=== PATIENT | male | born 1950 | race Caucasian/White ===

== ENCOUNTER 2025-05-16 10:44 | Inpatient (IN) | payer OTHER, SELFPAY ==
[2025-05-16] VITALS (12 sets, daily range): BP systolic 91–155; BP diastolic 63–101; PULSE 62–88; RESP 12–18; TEMP 36.4–36.7; O2SAT 92–98; BMI 25.7; BMI 25.0
--- NOTE | 2025-05-16 11:17 | CRLHL7_ITS ---
For Patients: As a result of the Century Cures Act, medical imaging exams and procedure reports are released immediately into your electronic medical record. You may view this report before your referring provider. If you have questions, please contact your health care provider. INDICATION: Fall. COMPARISON: None. TECHNIQUE: CT of the brain / head without intravenous contrast. Multiplanar axial, coronal, and sagittal reformats were reconstructed. FINDINGS: No intracranial hemorrhage. Moderate size area of underdevelopment or encephalomalacia in the left parietal lobe. Mild age-related atrophy as well. Scattered white matter hypodensities may be related to chronic microvascular ischemia. No mass or mass effect. Normal ventricles. No skull fractures. No worrisome focal bone lesion. IMPRESSION: No acute appearing findings or intracranial hemorrhage. Please note that all CT scans at this facility use dose modulation, iterative reconstruction, and/or weight-based dosing when appropriate to reduce radiation dose to as low as reasonably achievable. Dictated by Mary Kaur MD @ 05/16/2025 11:54:12 AM (Electronically Signed)
--- NOTE | 2025-05-16 11:17 | CRLHL7_ITS ---
For Patients: As a result of the 21st Century Cures Act, medical imaging exams and procedure reports are released immediately into your electronic medical record. You may view this report before your referring provider. If you have questions, please contact your health care provider. Indication: fall Technique: CT of the chest, abdomen, and pelvis was obtained without intravenous contrast. Please note that all CT scans at this facility use dose modulation, iterative reconstruction, and/or weight-based dosing when appropriate to reduce radiation dose to as low as reasonably achievable. Comparison: None. Findings: CHEST: Medical devices: None. Thyroid: Normal. Lymph nodes: Limited evaluation without IV contrast. No supraclavicular, axillary, mediastinal, or hilar lymphadenopathy. Vasculature: Limited evaluation without IV contrast. Aorta and main pulmonary artery diameters are within normal range. Mild aortic calcification. Heart: Moderate coronary artery calcification. No pericardial effusion. Other mediastinal structures: Normal noncontrast appearance. Lung parenchyma and pleura: Moderate scattered centrilobular nodularity and ground-glass in the left lower lobe. Mild paraseptal emphysema. Scattered calcified granulomata. Airways: Moderate bronchial wall thickening. Chest wall: Mildly displaced segmental right posterior 7th and 8th rib fractures. Minimally angulated right posteromedial 9th rib fracture. Mildly displaced segmental right posterior 10th and 11th rib fractures. Mild chronic healed left-sided rib fractures. ABDOMEN/PELVIS: Liver and biliary tree: Normal noncontrast appearance. Gallbladder: Cholelithiasis. Spleen: Normal noncontrast appearance. Pancreas: Mild to moderate fatty atrophy. Adrenal glands: Normal noncontrast appearance. Kidneys and ureters: No hydronephrosis or obstructing renal calculi. Gastrointestinal tract: Small to moderate stool burden. No evidence of acute appendicitis. No evidence of bowel obstruction. Peritoneal cavity: Normal Bladder: Normal Pelvic organs: Moderately enlarged prostate. Vasculature: Moderate calcification. Lymph nodes: Normal Abdominal wall: Trace fat containing periumbilical hernia. Musculoskeletal: Moderate degenerative changes of the visualized spine and bilateral hips. [id number] leftward curvature of the lumbar spine. Subcentimeter sclerotic lesion in the right iliac bone may represent a bone island in the absence of known malignancy. Impression: 1. Mildly displaced segmental right posterior 7th and 8th rib fractures. Minimally angulated right posteromedial 9th rib fracture. Mildly displaced segmental right posterior 10th and 11th rib fractures. While this may increase the risk of flail chest, this is felt to be less likely given the mildly displaced nature of several of these fractures. Consider correlation with respiratory status. 2. Moderate bronchial wall thickening may represent airways infection or inflammation. Moderate scattered centrilobular nodularity and ground-glass in the left lower lobes compatible with aspiration or atypical infection or inflammation. 3. No acute intra abdominal injury is seen. Please note that all CT scans at this facility use dose modulation, iterative reconstruction, and/or weight-based dosing when appropriate to reduce radiation dose to as low as reasonably achievable. Dictated by Gal Mclaughlin MD @ 05/16/2025 12:18:53 PM (Electronically Signed)
--- NOTE | 2025-05-16 11:17 | CRLHL7_ITS ---
For Patients: As a result of the Century Cures Act, medical imaging exams and procedure reports are released immediately into your electronic medical record. You may view this report before your referring provider. If you have questions, please contact your health care provider. INDICATION: Fall. COMPARISON: Same-day head CT TECHNIQUE: CT of the cervical spine without contrast. Multiplanar axial, coronal, and sagittal reformats were reconstructed. FINDINGS: No fracture. There is 2 millimeters retrolisthesis of C3 on C4. There is 2 millimeters anterolisthesis of C4 on C5. Severe C3-4 and C6-7 disc degenerative change. Moderate changes at other levels. Multilevel disc bulge and endplate osteophytes. Moderate multilevel facet arthritis. Multilevel bilateral neural foraminal narrowing. There is some central canal narrowing at C3-4 due to disc bulge, osteophytes, and thickening of the ligamentum flavum. No destructive bony lesions. No cervical prevertebral soft tissue swelling. Heavy atherosclerosis. Right apical worsened left apical centrilobular emphysema. There is a 4 millimeter nodule in the right lung apex. Consider follow-up chest CT in 1 year. IMPRESSION: No acute or traumatic findings on cervical spine CT. Please note that all CT scans at this facility use dose modulation, iterative reconstruction, and/or weight-based dosing when appropriate to reduce radiation dose to as low as reasonably achievable. Dictated by Mary Kaur MD @ 05/16/2025 11:58:53 AM (Electronically Signed)
--- NOTE | 2025-05-16 11:19 | ED.GENADULT ---
HPI - General Adult General Chief complaint: Rib Pain Stated complaint: Fall one week ago, r side pain Time Seen by Provider: 05/16/25 11:05 History of Present Illness HPI narrative: Patient is a 75-year-old gentleman who came home from the bar week ago presumably intoxicated and fell getting out of the car. Patient fell on his anterior chest and is not certain whether his head. Patient got up in promptly fell again on a piece of wood. Patient states he has most of his pain in anterior and lateral right side of his chest. Patient was unable to get up and actually drug himself across the frozen [employer] [place] y[place] into the house. Patient has been having red discharged from his scrotum since that time. He states he is urinating normally. Patient id decline medical care his insisted on bringing him in today week later as the pain and scrotal discharge have persisted. He has had no other neurologic symptoms. He states he has no alcohol since the accident. Patient is not eating or drinking much other than power rate and toast. Patient takes no anticoagulants or any other prescription medication. Related Data Home Medications ?Medication ?Instructions ?Recorded ?Confirmed No Known Home Medications 05/16/25 05/16/25 Allergies Allergy/AdvReac Type Severity Reaction Status Date / Time Penicillins Allergy Unknown Verified 05/16/25 11:01 Review of Systems Status of ROS: Reports: 10 or more systems reviewed and unremarkable except as noted in History and below Exam Narrative: Exam Narrative: EXAM GENERAL: Patient appears disheveled with poor dentition. EYES: No scleral icterus. LYMPH: No supraclavicular or cervical lymphadenopathy. SKIN: Bruise noted over the right posterior thorax. Scrotal exam shows no testicular or penis abnormalities but a he does have what appears to be a braided frostbitten and scrotal tissue. EXT: No dependent lower extremity pedal edema. HEART: Regular rate and rhythm with no murmurs, rubs, or gallops. LUNGS: Clear to auscultation bilaterally with no crackles or wheezes. ABD: Soft, non tender, non distended. PSYCH: Good eye contact, speech is not pressured. Neurologic cranial nerves 2-12 grossly intact no focal defects. Const: Vital Signs, click to edit/add: Vital Signs - 24 hr 05/16/25 10:48 Temperature 97.5 F L Pulse Rate [Pulse Oximeter] 75 Respiratory Rate 18 Blood Pressure [Le ft Upper Arm] 152/81 H Pulse Oximetry 98 Oxygen Delivery Me thod Room Air Course Course ED Course: Patient is a chronic alcohol drinker who had a fall that was unwitnessed. He will have CT head neck CT chest abdomen pelvis and I did send off CPK CBC comprehensive metabolic panel UA. Vital Signs Vital signs: Initial Vital Signs Temperature 97.5 F L 05/16/25 10:48 Temperature Source Temporal Artery Scan 05/16/25 10:48 Pulse Rate 75 05/16/25 10:48 Respiratory Rate 18 05/16/25 10:48 Blood Pressure 152/81 H 05/16/25 10:48 Blood Pressure Mean 104 05/16/25 10:48 Blood Pressure Position Sitting 05/16/25 10:48 Pulse Oximetry 98 05/16/25 10:48 Oxygen Delivery Method Room Air 05/16/25 10:48 Vital Signs Temperature 97.5 F L 05/16/25 10:48 Pulse Rate 75 05/16/25 10:48 Respiratory Rate 18 05/16/25 10:48 Blood Pressure 152/81 H 05/16/25 10:48 Pulse Oximetry 98 05/16/25 10:48 Oxygen Delivery Method Room Air 05/16/25 10:48 Temperature 97.5 F L 05/16/25 10:48 Pulse Rate 75 05/16/25 10:48 Respiratory Rate 18 05/16/25 10:48 Blood Pressure 152/81 H 05/16/25 10:48 Pulse Oximetry 98 05/16/25 10:48 Oxygen Delivery Method Room Air 05/16/25 10:48 Medical Decision Making [facility] Narrative Medical decision making narrative: Patient is a 75-year-old gentleman who got home at 1:00 a.m. 1 week ago after the [place] opening of the [employer] in [place]. Patient was presumably intoxicated and fell and then proceeded to drag himself across the frozen snow [facility] for the next 2 hours. Patient has fractures of ribs 7 through 11 with an underlying pneumonia. He also has dermatitis of his scrotum from likely frostbite with abrasion some bruising also noted in the groin bilaterally. Patient has not seen a doctor for many years. His CPK is normal his creatinine is 2.2 and I do not have a baseline. I did update his tetanus shot. I also discussed the case with him [facility] General surgery and hospitalist locally and the patient will be admitted after receiving IV Zosyn for treatment of rib fractures scrotal dermatitis and pneumonia. Lab Data Labs: Lab Results 05/16/25 Range/Units 11:47 WBC 10.85 (4.50-11.00) K/uL RBC 4.82 (4.30-5.90) m/uL Hgb 14.7 (13.5-17.5) gm/dL Hct 45.5 (37.0-53.0) % MCV 94 (80-100) fL MCH 31 (26-34) pg MCHC 32 (32-36) gm/dL RDW Coeff of Estefanía 14.5 (11.5-15.5) % Plt Count 215 (140-440) K/uL Neut % (Auto) 78.6 H (42.0-72.0) % Lymph % (Auto) 12.0 L (20-44) % [place] % (Auto) 8.4 (0.0-11.0) % Eos % (Auto) 0.6 (0.0-7.0) % Baso % (Auto) 0.3 (0.0-3.0) % Neut # (Auto) 8.50 H (1.7-7.0) K/uL Lymph # (Auto) 1.30 (0.90-2.90) K/uL [place] # (Auto) 0.90 (0.00-0.90) K/UL Eos # (Auto) 0.06 (0.00-0.50) K/uL Baso # (Auto) 0.03 (0.00-0.30) K/uL Abs Immat Gran (auto) 0.01 (0.00-0.30) K/uL Imm/Tot Granulo (auto) 0.1 % INR 0.87 L (0.91-1.10) Sodium 140 (135-149) mmol/L Potassium 5.0 (3.6-5.1) mmol/L Chloride 106 (96-114) mmol/L Carbon Dioxide 14 L (20-32) mmol/L Anion Gap 20 H (7-15) mEq/L BUN 46 H (7-30) mg/dL Creatinine 2.2 H (0.5-1.5) mg/dL Estimated Creat Clear 26.58 Estimated GFR 31 ml/min Glucose 107 (60-115) mg/dL Calcium 9.3 (8.4-10.6) mg/dL Total Bilirubin 1.0 (0.1-1.5) mg/dL AST 23 (12-35) U/L ALT 95 H (4-50) U/L Alkaline Phosphatase 67 (40-150) U/L Total Creatine Kinase 41 L (54-186) U/L Total Protein 7.7 (6.0-8.3) g/dL Albumin 4.4 (3.3-5.0) g/dL Discharge Plan Discharge Clinical Impression: Rib fracture Patient Disposition: Admitted As Inpatient Condition: Stable Activity Level: Other Discharge Diet: Other
[2025-05-16 12:01] LABS: Hematocrit* 45.5 % (37.0-53.0); Hemoglobin* 14.7 gm/dL (13.5-17.5); Immature Granulocytes Abs Auto 0.01 K/uL (0.00-0.30); Immature Granulocytes Pct Auto 0.1 %; Lymphocytes Absolute Auto 1.30 K/uL (0.90-2.90); Mean Corpuscular HGB Conc 32 gm/dL (32-36); Mean Corpuscular Hemoglobin 31 pg (26-34); Mean Corpuscular Volume 94 fL (80-100); RDW Coefficient of Variation % 14.5 % (11.5-15.5); Red Blood Count* 4.82 m/uL (4.30-5.90); White Blood Count* 10.85 K/uL (4.50-11.00)
[2025-05-16 12:03] LABS: Slide Review Reflex No
[2025-05-16 12:14] LABS: Albumin* 4.4 g/dL (3.3-5.0); Chloride* 106 mmol/L (96-114); Sodium* 140 mmol/L (135-149)
[2025-05-16 12:15] LABS: INR 0.87 (0.91-1.10); Potassium* 5.0 mmol/L (3.6-5.1); Prothrombin Time 12.6 Seconds
[2025-05-16 12:17] LABS: Alanine Aminotransferase* 95 U/L (4-50); Alkaline Phosphatase* 67 U/L (40-150); Anion Gap 20 mEq/L (7-15); Aspartate Amino Transferase* 23 U/L (12-35); Bilirubin Total* 1.0 mg/dL (0.1-1.5); Blood Urea Nitrogen* 46 mg/dL (7-30); Carbon Dioxide* 14 mmol/L (20-32); Creatinine* 2.2 mg/dL (0.5-1.5); Est. Creatinine Clearance* 26.58; Estimated Glomerular Filt Rate 31 ml/min
[2025-05-16 12:18] LABS: Calcium* 9.3 mg/dL (8.4-10.6); Creatine Kinase* 41 U/L (54-186); Glucose* 107 mg/dL (60-115); Total Protein* 7.7 g/dL (6.0-8.3)
[2025-05-16 13:03] LABS: Appearance Urine Clear (Clear)
[2025-05-16] MEDS: PIPERACILLIN/TAZOBACTAM 2.25 GM in 0.9 % SODIUM CHLORIDE Mini-bag 100 ML IVPB (13:11)
[2025-05-16] MEDS: AZITHROMYCIN 250 MG TABLET 500 MG PO (13:11)
[2025-05-16] MEDS: TETANUS/DIPHTH/PERTUSSIS 0.5 ML SYRINGE IM (13:12)
--- NOTE | 2025-05-16 14:03 | PC.NURSE ---
Scrotum pictures as requested by provider
[2025-05-16] MEDS: ACETAMINOPHEN 325 MG TABLET 975 MG PO ×2 (14:15→23:35)
[2025-05-16] MEDS: THIAMINE 100 MG TABLET PO (15:15)
--- NOTE | 2025-05-16 15:54 | PM.IMHP1 ---
Assessment and Plan Assessment and plan (1) DOMINIK (acute kidney injury): Problem comment: Unknown baseline On admission; creatinine elevated at 2.2 with GFR of 31 Creatinine kinase was within normal after the fall Likely secondary to dehydration as patient has decreased appetite and is not drinking well or it could be related to infection. Will give him IV fluids and monitor creatinine/ GFR. If no improvement with IV fluids, patient might need further investigation like renal ultrasound and follow up with his PCP/laboratory sample carrier for further workup. Status: Acute (2) Aspiration pneumonia: Problem comment: -CT scan of the chest showed Moderate bronchial wall thickening may represent airways infection or inflammation. Moderate scattered centrilobular nodularity and ground-glass in the left lower lobes compatible with aspiration or atypical infection or inflammation. -He is an everyday smoker and he states that he has chronic smoker cough and chronic greenish phlegm that did not worsen recently, he said that this is his usual baseline ( which could be undiagnosed COPD). -patient may have had an incident of aspiration pneumonia on the day of that fall or it could be aspiration pneumonitis. -will start him on Unasyn, we will monitor overnight, will deescalate if patient does not have any fevers, worsening cough or phlegm. Status: Acute (3) Multiple rib fractures: Problem comment: -His chest CT showed mildly displaced segmental right posterior 7th and 8th rib fractures. Minimally angulated right posteromedial 9th rib fracture. Mildly displaced segmental right posterior 10th and 11th rib fractures. -ED provider contacted general surgeon Dr. Sergo rivero who stated that patient can be admitted for observation and nothing to be done for these fractures. -pain management. Status: Acute (4) Alcohol use disorder: Problem comment: Ordered CIWA protocol Ordered thiamine, folate and multivitamin. Status: Acute (5) Tobacco use disorder: Problem comment: Offered a nicotine patch Status: Acute (6) Suspected chronic obstructive pulmonary disease based on initial evaluation: Problem comment: He is an everyday smoker and he states that he has chronic smoker cough and chronic greenish phlegm that did not worsen recently, he said that this is his usual baseline ( which could be undiagnosed COPD). Patient needs to follow up with his primary care physician for more workup and evaluation. Status: Acute (7) Genitourinary trauma: Problem comment: Patient may have injured his testicles during dragging himself on the floor for long distance Benign examination, nontender to palpation not swollen or red Will monitor Urinalysis unremarkable Status: Acute Total Time Spent Total Time Spent: The Time spent: Today I spent 75 minutes seeing the patient, discussing the patient with ER staff, reviewing Expanse and EPIC notes/diagnostics, discussing the care plan with our care time that includes social work, PT/OT, pharmacy, RT, penitentiary and documenting my impressions and plan in the medical record. Hospitalist- H&P: HPI History of Present Illness Date Seen: 05/16/25 Chief complaint: Fall Narrative: Andrew Farias is a 75 year old male without a significant past medical history per the patient as he did not see physician for long time. Patient is an everyday smoker, with alcohol use disorder, mainly beer who presents after fall that happened 7 days ago, complaining of right flank/mid axillary pain and bruising that started after that fall. Pt states that he came home from the bar week ago presumably intoxicated and fell getting out of the car. Patient got up in promptly fell again on a piece of wood. Patient states he has most of his pain in anterior and lateral right side of his chest. Patient was unable to get up and actually drag himself across the [place] [employer] [place] into the house. In addition, patient noticed that he has been having stained underwear (color of beet juice) since that fall. patient denies fevers, shortness of breath, chest pain or discomfort on exertion ( he just has that pain related to taking a deep breath or coughing at the site of chest bruising). he is urinating well and he stated that he does not have pain in his testicles or penis right now. Patient denies history of heart, lung, kidney or liver disease. He is an everyday smoker and he states that he has chronic smoker cough and chronic greenish phlegm that did not worsen recently, he said that this is his usual baseline ( which could be undiagnosed COPD). at the ED, patient was hemodynamically stable, afebrile. WBCs borderline elevated at 10.85. creatinine elevated at 2.2 with GFR of 31, unknown baseline. He got CT head and CT cervical spine that were unremarkable. His chest CT showed mildly displaced segmental right posterior 7th and 8th rib fractures. Minimally angulated right posteromedial 9th rib fracture. Mildly displaced segmental right posterior 10th and 11th rib fractures. Moderate bronchial wall thickening may represent airways infection or inflammation. Moderate scattered centrilobular nodularity and ground-glass in the left lower lobes compatible with aspiration or atypical infection or inflammation. Review of Systems Status of ROS: Reports: 6 or more systems reviewed and unremarkable except as noted in History and below Medical Decision Making Medical Decision Making Has patient completed a Health Care Directive: No PFSH PFSH Social History What is your current living situation?: I presently have a place to live Problems where you live: no known problems Problems where you live details: none In the past 12 months, utilities in danger of being shut off: no In past 12 months, lack of transportation kept you from medical appts, meetings, work, or getting things needed for daily living: no In the past 12 mos, have been you worried that your food would run out before you had money to buy more?: never true In the past 12 mos, the food you bought just didn't last and you didn't have money to buy more?: never true Highest level of school completed/degree received: high school graduate Smoking Status: Current every day smoker What tobacco products do you use: cigarettes Do you use any of these nicotine containing products: E-Cigarettes Nicotine containing products detail: pack a day How often do you have a drink containing alcohol: 4 or more times a week Alcohol type: beer Alcohol type details: has not had alcohol since fall How many standard drinks containing alcohol do you have on a typical day: 5 or 6 How often do you have six or more drinks on one occasion: Weekly AUDIT-C Alcohol total score: 9 Non-prescribed substance use: marijuana (any form) Non-prescribed substance use details: smoke weed Caffeine: No How often does anyone, including family, friends and others, physically hurt you: never How often does anyone, including family, friends and others, insult or talk down to you: never How often does anyone, including family, friends and others, threaten you with harm: never How often does anyone, including family, friends and others, scream or curse at you: never service: Yes Meds Home Medications and Allergies Home Medications ?Medication ?Instructions ?Recorded ?Confirmed ?Type No Known Home Medications 05/16/25 05/16/25 History Allergies Allergy/AdvReac Type Severity Reaction Status Date / Time Penicillins Allergy Unknown Verified 05/16/25 12:57 Exam Narrative: Exam Narrative: Physical exam GENERAL: Comfortable, no acute distress. HEAD AND NECK: Atraumatic, normocephalic CARDIOVASCULAR: RRR. Normal S1, S2. No murmurs. RESPIRATORY: Clear to auscultation B/L. Good air entry B/L. No wheezes or rhonchi. GASTROINTESTINAL: Soft, not tender to palpation. NEUROLOGY: Alert, awake, oriented X 3. Normal speech. UGT: Patient's testicles are not red or swollen, nontender to palpation. Discoloration bilateral upper thighs likely secondary to old abrasion. No redness or swelling in the groin area. MSK: Rt flank/ mid axillary line mild bruising and tenderness to palpation. PSYCH: Normal mood, normal affect. Const: Vital Signs, click to edit/add: Vital Signs - 24 hr 05/16/25 10:48 05/16/25 12:02 05/16/25 12:32 Temperature 97.5 F L Pulse Rate 77 76 Pulse Rate [Pulse Oximeter] 75 Respiratory Rate 18 18 16 Blood Pressure 139/72 131/101 H Blood Pressure [Le ft Arm] Blood Pressure [Le ft Upper Arm] 152/81 H Blood Pressure [Ri ght Arm] Pulse Oximetry 98 93 97 Oxygen Delivery Me thod Room Air 05/16/25 12:45 05/16/25 13:52 05/16/25 15:07 Temperature 97.9 F 97.6 F Pulse Rate 88 Pulse Rate [Pulse Oximeter] 63 75 Respiratory Rate 12 18 14 Blood Pressure Blood Pressure [Le ft Arm] 155/72 H Blood Pressure [Le ft Upper Arm] Blood Pressure [Ri ght Arm] 91/63 Pulse Oximetry 95 98 92 Oxygen Delivery Me thod Room Air Room Air Room Air 05/16/25 15:10 Temperature 97.6 F Pulse Rate Pulse Rate [Pulse Oximeter] 75 Respiratory Rate 14 Blood Pressure Blood Pressure [Le ft Arm] Blood Pressure [Le ft Upper Arm] Blood Pressure [Ri ght Arm] 91/63 Pulse Oximetry 92 Oxygen Delivery Me thod Room Air Hospitalist - H&P: Result Labs Labs: Short CBC 05/16/25 Range/Units 11:47 WBC 10.85 (4.50-11.00) K/uL Hgb 14.7 (13.5-17.5) gm/dL Hct 45.5 (37.0-53.0) % Plt Count 215 (140-440) K/uL BMP 05/16/25 11:47 Sodium 140 Potassium 5.0 Chloride 106 Carbon Dioxide 14 L BUN 46 H Creatinine 2.2 H Glucose 107 Calcium 9.3 Cardiac Enzymes 05/16/25 Range/Units 11:47 Total Creatine Kinase 41 L (54-186) U/L Liver Function 05/16/25 Range/Units 11:47 Total Bilirubin 1.0 (0.1-1.5) mg/dL AST 23 (12-35) U/L ALT 95 H (4-50) U/L Alkaline Phosphatase 67 (40-150) U/L Albumin 4.4 (3.3-5.0) g/dL Urine 05/16/25 Range/Units 12:55 Urine Color Yellow (Yellow) Urine Appearance Clear (Clear) Urine pH 5.5 (5.0-8.5) Ur Specific [place] 1.020 (1.000-1.030) Urine Protein 1+ A (Negative) Urine Glucose (UA) Negative (Negative) Imaging CT Chest/Ab/Pelvis: Attestation: I have reviewed the pertinent imaging results. Radiologist's impression: Indication: fall Technique: CT of the chest, abdomen, and pelvis was obtained without intravenous contrast. Please note that all CT scans at this facility use dose modulation, iterative reconstruction, and/or weight-based dosing when appropriate to reduce radiation dose to as low as reasonably achievable. Comparison: None. Findings: CHEST: Medical devices: None. Thyroid: Normal. Lymph nodes: Limited evaluation without IV contrast. No supraclavicular, axillary, mediastinal, or hilar lymphadenopathy. Vasculature: Limited evaluation without IV contrast. Aorta and main pulmonary artery diameters are within normal range. Mild aortic calcification. Heart: Moderate coronary artery calcification. No pericardial effusion. Other mediastinal structures: Normal noncontrast appearance. Lung parenchyma and pleura: Moderate scattered centrilobular nodularity and ground-glass in the left lower lobe. Mild paraseptal emphysema. Scattered calcified granulomata. Airways: Moderate bronchial wall thickening. Chest wall: Mildly displaced segmental right posterior 7th and 8th rib fractures. Minimally angulated right posteromedial 9th rib fracture. Mildly displaced segmental right posterior 10th and 11th rib fractures. Mild chronic healed left-sided rib fractures. ABDOMEN/PELVIS: Liver and biliary tree: Normal noncontrast appearance. Gallbladder: Cholelithiasis. Spleen: Normal noncontrast appearance. Pancreas: Mild to moderate fatty atrophy. Adrenal glands: Normal noncontrast appearance. Kidneys and ureters: No hydronephrosis or obstructing renal calculi. Gastrointestinal tract: Small to moderate stool burden. No evidence of acute appendicitis. No evidence of bowel obstruction. Peritoneal cavity: Normal Bladder: Normal Pelvic organs: Moderately enlarged prostate. Vasculature: Moderate calcification. Lymph nodes: Normal Abdominal wall: Trace fat containing periumbilical hernia. Musculoskeletal: Moderate degenerative changes of the visualized spine and bilateral hips. [id number] leftward curvature of the lumbar spine. Subcentimeter sclerotic lesion in the right iliac bone may represent a bone island in the absence of known malignancy. Impression: 1. Mildly displaced segmental right posterior 7th and 8th rib fractures. Minimally angulated right posteromedial 9th rib fracture. Mildly displaced segmental right posterior 10th and 11th rib fractures. While this may increase the risk of flail chest, this is felt to be less likely given the mildly displaced nature of several of these fractures. Consider correlation with respiratory status. 2. Moderate bronchial wall thickening may represent airways infection or inflammation. Moderate scattered centrilobular nodularity and ground-glass in the left lower lobes compatible with aspiration or atypical infection or inflammation. 3. No acute intra abdominal injury is seen. Please note that all CT scans at this facility use dose modulation, iterative reconstruction, and/or weight-based dosing when appropriate to reduce radiation dose to as low as reasonably achievable. Dictated by Gal Mclaughlin MD @ 05/16/2025 12:18:53 PM
[2025-05-16] MEDS: cefTRIAXone 1 GM in 0.9 % SODIUM CHLORIDE Mini-bag 100 ML IVPB (18:45)
--- NOTE | 2025-05-16 19:04 | PC.NURSE ---
End of Shift: Patient pleasant and cooperative, alert and oriented, arrived to the floor about 1530. Patient vitally stable, lungs crackles/diminished, BS WNL, IV SL. Patient rated pain upon admission 8/10. Tylenol and 5 mg of oxy was given and pain reduced to 1/10. Patient is SBA. Patient has been up in chair at it was hard for him to get comfortable in bed. Patient tolerating regular diet and urinating well.
[2025-05-16] MEDS: ENOXAPARIN 40 MG/0.4 ML INJ SUBCUT (20:25)
[2025-05-17] VITALS (10 sets, daily range): BP systolic 104–160; BP diastolic 67–85; PULSE 60–813; RESP 14–20; TEMP 36.3–36.6; O2SAT 95–98
--- NOTE | 2025-05-17 04:13 | PC.NURSE ---
Shift Note: Pt friendly and cooperative, CIWAS unremarkable. States he doesn't have much pain unless he coughs or takes a deep breath and then pain is 8/10. [facility] Dean discussed importance of deep breathing and IS use. Tylenol and Oxy given for pain control as well as active ice.
--- NOTE | 2025-05-17 04:25 | PC.NURSE ---
Pt up during the night several times to void anywhere from 100cc-175cc. Urine is clear with strong odor. Encouraging fluids PO.
[2025-05-17] MEDS: ACETAMINOPHEN 325 MG TABLET 975 MG PO ×3 (06:35→18:39)
[2025-05-17 06:55] LABS: Hematocrit* 40.8 % (37.0-53.0); Hemoglobin* 13.2 gm/dL (13.5-17.5); Mean Corpuscular HGB Conc 32 gm/dL (32-36); Mean Corpuscular Hemoglobin 31 pg (26-34); Mean Corpuscular Volume 95 fL (80-100); Red Blood Count* 4.31 m/uL (4.30-5.90); White Blood Count* 5.40 K/uL (4.50-11.00)
[2025-05-17 06:58] LABS: Slide Review Reflex No
[2025-05-17 07:07] LABS: Albumin* 3.7 g/dL (3.3-5.0); Chloride* 111 mmol/L (96-114)
[2025-05-17 07:08] LABS: Potassium* 4.3 mmol/L (3.6-5.1); Sodium* 140 mmol/L (135-149)
[2025-05-17 07:10] LABS: Alanine Aminotransferase* 66 U/L (4-50); Alkaline Phosphatase* 54 U/L (40-150); Anion Gap 15 mEq/L (7-15); Aspartate Amino Transferase* 17 U/L (12-35); Bilirubin Total* 0.8 mg/dL (0.1-1.5); Blood Urea Nitrogen* 35 mg/dL (7-30); Carbon Dioxide* 14 mmol/L (20-32); Creatinine* 1.3 mg/dL (0.5-1.5); Est. Creatinine Clearance* 44.99; Estimated Glomerular Filt Rate 58 ml/min; Total Protein* 6.5 g/dL (6.0-8.3)
[2025-05-17 07:11] LABS: Calcium* 8.9 mg/dL (8.4-10.6); Glucose* 86 mg/dL (60-115)
[2025-05-17] MEDS: MULTIVITAMIN/MINERALS 1 TABLET 1 TAB PO (08:37)
[2025-05-17] MEDS: FOLIC ACID 1 MG TABLET PO (08:37)
[2025-05-17] MEDS: SODIUM CHLORIDE 0.9 % (FLUSH) 10 ML SYRINGE 5 ML IVF ×2 (08:37→21:18)
[2025-05-17] MEDS: AZITHROMYCIN 250 MG TABLET PO (08:38)
--- NOTE | 2025-05-17 09:51 | CRLHL7_ITS ---
For Patients: As a result of the Century Cures Act, medical imaging exams and procedure reports are released immediately into your electronic medical record. You may view this report before your referring provider. If you have questions, please contact your health care provider. INDICATION: Fall. Swelling and pain. Technique : Left ankle three views FINDINGS: There is soft tissue swelling overlying the ankle especially on the lateral side. No fracture or dislocation is identified. The ankle mortise is symmetric there is a small plantar calcaneal spur. There is atherosclerosis calcification within the lower extremity. IMPRESSION: Negative for fracture or dislocation. Dictated by Mason Christine MD @ 05/17/2025 10:45:31 AM (Electronically Signed)
--- NOTE | 2025-05-17 09:51 | CRLHL7_ITS ---
For Patients: As a result of the Cures Act, medical imaging exams and procedure reports are released immediately into your electronic medical record. You may view this report before your referring provider. If you have questions, please contact your health care provider. INDICATION: Fall, injury, pain COMPARISON: None. TECHNIQUE: Two views left foot, nonweightbearing. FINDINGS: No acute or healing fracture. No dislocation. 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 No focal bone lesions. Calcaneal enthesophytes. Soft tissue swelling/fullness. Atherosclerosis. No foreign body. IMPRESSION: No acute appearing findings in the left foot. Dictated by Mary Kaur MD @ 05/17/2025 10:45:20 AM (Electronically Signed)
--- NOTE | 2025-05-17 09:51 | CRLHL7_ITS ---
For Patients: As a result of the Century Cures Act, medical imaging exams and procedure reports are released immediately into your electronic medical record. You may view this report before your referring provider. If you have questions, please contact your health care provider. INDICATION: Leg pain and swelling. TECHNIQUE: Ultrasound venous duplex lower left extremity. Compression venous exam was performed using palaico-scale, color Doppler, and spectral Doppler analysis. COMPARISON: None. FINDINGS: Deep veins: Sonographic imaging demonstrates the left common femoral, deep femoral, superficial femoral, popliteal, posterior tibial and the contralateral right common femoral veins to be fully compressible with normal color Doppler blood flow. Superficial veins: Greater saphenous vein is fully compressible. No popliteal cyst. IMPRESSION: No scintigraphic evidence of left lower extremity DVT. Dictated by Roscoe Velasquez MD @ 05/17/2025 11:46:44 AM (Electronically Signed)
[2025-05-17] MEDS: MAG HYDROX/ALUMINUM HYD/SIMETH 30 ML ORAL.SUSP 15 ML PO (14:37)
[2025-05-17] MEDS: CALCIUM CARBONATE 500 MG CHEW PO ×2 (14:37→23:15)
--- NOTE | 2025-05-17 15:40 | P.IMPN_ITS ---
Assessment and Plan Assessment and plan (1) DOMINIK (acute kidney injury): Problem comment: Unknown baseline On admission; creatinine elevated at 2.2 with GFR of 31 Creatinine kinase was within normal after the fall Likely secondary to dehydration as patient has decreased appetite and is not drinking well or it could be related to infection. Will give him IV fluids and monitor creatinine/ GFR. 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 - 12/ DOMINIK improving with IVF. Saline lock and monitor. Status: Acute (2) Aspiration pneumonia: Problem comment: -CT scan of the chest showed Moderate bronchial wall thickening may represent airways infection or inflammation. Moderate scattered centrilobular nodularity and ground-glass in the left lower lobes compatible with aspiration or atypical infection or inflammation. -He is an everyday smoker and he states that he has chronic smoker cough and chronic greenish phlegm that did not worsen recently, he said that this is his usual baseline ( which could be undiagnosed COPD). -patient may have had an incident of aspiration pneumonia on the day of that fall or it could be aspiration pneumonitis. -will start him on Unasyn, we will monitor overnight, will deescalate if patient does not have any fevers, worsening cough or phlegm. - 05/17 No hypoxia. Continue ceftriaxone and azithromycin. Status: Acute (3) Multiple rib fractures: Problem comment: -His chest CT showed mildly displaced segmental right posterior 7th and 8th rib fractures. Minimally angulated right posteromedial 9th rib fracture. Mildly displaced segmental right posterior 10th and 11th rib fractures. -ED provider contacted general surgeon Dr. Trotter him who stated that patient can be admitted for observation and nothing to be done for these fractures. -pain management. Status: Acute (4) Alcohol use disorder: Problem comment: Ordered CIWA protocol Ordered thiamine, folate and multivitamin. Status: Acute (5) Tobacco use disorder: Problem comment: Offered a nicotine patch Status: Acute (6) Suspected chronic obstructive pulmonary disease based on initial evaluation: Problem comment: He is an everyday smoker and he states that he has chronic smoker cough and chronic greenish phlegm that did not worsen recently, he said that this is his usual baseline ( which could be undiagnosed COPD). Patient needs to follow up with his primary care physician for more workup and evaluation. Status: Acute (7) Genitourinary trauma: Problem comment: Patient may have injured his testicles during dragging himself on the floor for long distance Benign examination, nontender to palpation not swollen or red Will monitor Urinalysis unremarkable Status: Acute (8) Unsteady gait: Problem comment: - Noted by nursing staff. Obtain PT and OT consults today. Status: Acute (9) Left leg pain: Problem comment: - recent fall, now with left lower extremity pain and swelling - check a lower extremity ultrasound and x-rays; results, above, are negative Status: Acute Plan 75-year-old male who fell sustaining rib fractures, also has aspiration pneumonia and acute kidney injury from dehydration. These are improving. Also has not noted unsteady gait, PT own OT evaluations today. Anticipate likely discharge home tomorrow. Total Time Spent Total Time Spent: The Time spent: Today I spent 75 minutes seeing the patient, discussing the patient with ER staff, reviewing Expanse and EPIC notes/diagnostics, discussing the care plan with our care time that includes social work, PT/OT, pharmacy, RT, prison and documenting my impressions and plan in the medical record. Subjective Time Seen by Provider: 09:42 Date Seen: 05/17/25 Interval history: Andrew c/o LLE swelling and pain. He is breathing a bit more easily today. He had a sudden emesis without nausea. +flatus. Exam Narrative: Exam Narrative: General: No acute distress. Awake, alert, oriented. No pallor. No jaundice. Oropharynx: Clear. Mucous membranes moist. Cardiovascular: Regular rate and rhythm. No murmurs, gallops, or rubs. Respiratory: Clear to auscultation bilaterally. No wheezes or crackles. Abdomen: Bowel sounds present. Soft, nondistended, nontender. Extremities: 2+ pitting edema left lower extremity, 1+ pitting edema of right lower extremity. Tender to palpation along the left low lateral leg, and near the malleolus but not on the malleolus. Also tender at the top of the foot. There is no ecchymosis or erythema to these areas. Const: Vital Signs, click to edit/add: Vital Signs - 24 hr 05/16/25 16:20 05/16/25 17:56 05/16/25 19:00 Temperature 97.7 F 97.6 F 98.1 F Pulse Rate [Pulse Oximeter] 62 66 83 Respiratory Rate 14 14 18 Blood Pressure [Le ft Arm] 154/72 H Blood Pressure [Ri ght Arm] 116/68 118/66 Pulse Oximetry 97 97 96 Oxygen Delivery Me thod Room Air Room Air Room Air 05/16/25 23:00 05/16/25 23:00 05/17/25 03:00 Temperature 97.5 F L 97.7 F Pulse Rate [Pulse Oximeter] 67 67 60 Respiratory Rate 18 18 18 Blood Pressure [Le ft Arm] Blood Pressure [Ri ght Arm] 129/72 104/67 Pulse Oximetry 96 97 Oxygen Delivery Me thod Room Air Room Air 05/17/25 03:00 05/17/25 08:28 05/17/25 08:28 Temperature 97.7 F 97.4 F L Pulse Rate [Pulse Oximeter] 60 70 70 Respiratory Rate 18 14 14 Blood Pressure [Le ft Arm] Blood Pressure [Ri ght Arm] 104/67 134/76 Pulse Oximetry 97 98 Oxygen Delivery Me thod Room Air Room Air 05/17/25 08:29 05/17/25 11:00 05/17/25 11:08 Temperature 97.4 F L 97.5 F L 97.5 F L Pulse Rate [Pulse Oximeter] 70 74 74 Respiratory Rate 14 14 14 Blood Pressure [Le ft Arm] 141/85 H 141/85 H Blood Pressure [Ri ght Arm] 134/76 Pulse Oximetry 98 96 96 Oxygen Delivery Me thod Room Air Room Air Room Air Labs Labs: Laboratory Results - last 24 hr 05/17/25 05/17/25 06:16 08:13 WBC 5.40 RBC 4.31 Hgb 13.2 L Hct 40.8 MCV 95 MCH 31 MCHC 32 Plt Count 190 Sodium 140 Potassium 4.3 Chloride 111 Carbon Dioxide 14 L Anion Gap 15 BUN 35 H Creatinine 1.3 Estimated Creat Clear 44.99 Estimated GFR 58 Glucose 86 Calcium 8.9 Magnesium 2.3 Total Bilirubin 0.8 AST 17 ALT 66 H Alkaline Phosphatase 54 Total Protein 6.5 Albumin 3.7 Lipase 48 Lab Acknowledgement Test Added Ordering Physician: Angely Devlin M.D. Date of Service: 05/17/25 Procedure(s): XR ankle LT min 3V Accession Number(s): [id number] cc: Angely Devlin M.D.; Provider,Not a Local~ For Patients: As a result of the s , medical imaging exams and procedure reports are released immediately into your electronic medical record. You may view this report before your referring provider. If you have questions, please contact your health care provider. INDICATION: Fall. Swelling and pain. Technique : Left ankle three views FINDINGS: There is soft tissue swelling overlying the ankle especially on the lateral side. No fracture or dislocation is identified. The ankle mortise is symmetric there is a small plantar calcaneal spur. There is atherosclerosis calcification within the lower extremity. IMPRESSION: Negative for fracture or dislocation. Dictated by Mason Christine MD @ 05/17/2025 10:45:31 AM (Electronically Signed) Ordering Physician: Angely Devlin M.D. Date of Service: 05/17/25 Procedure(s): XR foot LT 2V Accession Number(s): [id number] cc: Angely Devlin M.D.; Provider,Not a Local~ For Patients: As a result of the s , medical imaging exams and procedure reports are released immediately into your electronic medical record. You may view this report before your referring provider. If you have questions, please contact your health care provider. INDICATION: Fall, injury, pain COMPARISON: None. TECHNIQUE: Two views left foot, nonweightbearing. FINDINGS: No acute or healing fracture. No dislocation. 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 No focal bone lesions. Calcaneal enthesophytes. Soft tissue swelling/fullness. Atherosclerosis. No foreign body. IMPRESSION: No acute appearing findings in the left foot. Dictated by Mary Kaur MD @ 05/17/2025 10:45:20 AM (Electronically Signed) Ordering Physician: Angely Devlin M.D. Date of Service: 05/17/25 Procedure(s): US venous LE LT Accession Number(s): [id number] cc: Angely Devlin M.D.; Provider,Not a Local~ For Patients: As a result of the s , medical imaging exams and procedure reports are released immediately into your electronic medical record. You may view this report before your referring provider. If you have questions, please contact your health care provider. INDICATION: Leg pain and swelling. TECHNIQUE: Ultrasound venous duplex lower left extremity. Compression venous exam was performed using palacio-scale, color Doppler, and spectral Doppler analysis. COMPARISON: None. FINDINGS: Deep veins: Sonographic imaging demonstrates the left common femoral, deep femoral, superficial femoral, popliteal, posterior tibial and the contralateral right common femoral veins to be fully compressible with normal color Doppler blood flow. Superficial veins: Greater saphenous vein is fully compressible. No popliteal cyst. IMPRESSION: No scintigraphic evidence of left lower extremity DVT. Dictated by Roscoe Velasquez MD @ 05/17/2025 11:46:44 AM (Electronically Signed)
[2025-05-17] MEDS: THIAMINE 100 MG TABLET PO (16:09)
--- NOTE | 2025-05-17 18:13 | PC.NURSE ---
End of Shift: Patient pleasant and cooperative. Patient vitally stable, lungs course/Rhonchi, BS WNL, IV SL and intact. Patient rates pain as high as 8/10 and also no pain. Tylenol and 5mg of oxy given twice. Patient has had 2 large emesis, both with being in the process of eating. Patient report no nausea occurs with his nausea, it just unexpectedly occurs. Patient has today has eaten bites of banana, bites of hamburger, 1 ice cream, and 1 pudding. Patient also report heartburn/acid reflux, tums and simethicon given. Miralax has been given as patient has not had a BM in 1 week. Patient is SBA/walker. Patient is urinating well, no BM. This public relations writer spoke with on the phone, reported that patient does not smoke marijuana every day, that he is an infrequent smoker. She also expressed that she does not know if she could take care of him right now, if he is not eating but vomiting and also hasn't had a BM in a week.
[2025-05-17] MEDS: cefTRIAXone 1 GM in 0.9 % SODIUM CHLORIDE Mini-bag 100 ML IVPB (18:37)
[2025-05-17] MEDS: ENOXAPARIN 40 MG/0.4 ML INJ SUBCUT (21:18)
[2025-05-17] MEDS: SENNOSIDES/DOCUSATE TABLET 2 TAB PO (21:18)
[2025-05-18] VITALS (8 sets, daily range): BP systolic 112–158; BP diastolic 73–108; PULSE 74–100; RESP 14–16; TEMP 36.3–36.6; O2SAT 94–96
[2025-05-18] MEDS: MAG HYDROX/ALUMINUM HYD/SIMETH 30 ML ORAL.SUSP 15 ML PO (00:08)
[2025-05-18] MEDS: ACETAMINOPHEN 325 MG TABLET 975 MG PO ×2 (03:42→10:43)
--- NOTE | 2025-05-18 06:00 | PC.NURSE ---
Shift Note: Pt doing well overnight. Seems in good spirits and moving well with assist x1. Denies pain except with coughing or deep breathing. Pt has developed hiccups this morning which has been frustrating for him d/t increased pain. He has tried holding his breath and having a snack without success. Ice pack in place and PRN Tylenol & oxy given. No issues with nausea or vomiting, tolerated evening snack and water without troubles.
[2025-05-18 06:01] LABS: Hematocrit* 39.0 % (37.0-53.0); Hemoglobin* 12.7 gm/dL (13.5-17.5); Immature Granulocytes Abs Auto 0.00 K/uL (0.00-0.30); Immature Granulocytes Pct Auto 0.0 %; Lymphocytes Absolute Auto 1.37 K/uL (0.90-2.90); Mean Corpuscular HGB Conc 33 gm/dL (32-36); Mean Corpuscular Hemoglobin 31 pg (26-34); Mean Corpuscular Volume 94 fL (80-100); RDW Coefficient of Variation % 14.5 % (11.5-15.5); Red Blood Count* 4.16 m/uL (4.30-5.90); Slide Review Reflex No; White Blood Count* 5.48 K/uL (4.50-11.00)
[2025-05-18 06:15] LABS: Chloride* 110 mmol/L (96-114); Sodium* 140 mmol/L (135-149)
[2025-05-18 06:16] LABS: Potassium* 4.1 mmol/L (3.6-5.1)
[2025-05-18 06:19] LABS: Anion Gap 14 mEq/L (7-15); Blood Urea Nitrogen* 22 mg/dL (7-30); Calcium* 9.4 mg/dL (8.4-10.6); Carbon Dioxide* 16 mmol/L (20-32); Creatinine* 0.9 mg/dL (0.5-1.5); Est. Creatinine Clearance* 58.48; Estimated Glomerular Filt Rate 90 ml/min; Glucose* 124 mg/dL (60-115)
--- NOTE | 2025-05-18 08:20 | CRLHL7_ITS ---
For Patients: As a result of the Century Cures Act, medical imaging exams and procedure reports are released immediately into your electronic medical record. You may view this report before your referring provider. If you have questions, please contact your health care provider. INDICATION: Vomiting, hiccups, no flatus. COMPARISON: CT 05/16/2025 TECHNIQUE: 2 view abdominal radiograph, supine and upright. FINDINGS: Small stool burden. No dilated bowel loops. Few scattered air-fluid levels. No free air. No organomegaly or mass effect. Atherosclerosis. Lung bases: Clear. Osseous structures: Lumbar spinal curvature with disc and facet degeneration. No acute appearing bone findings. IMPRESSION: Nonobstructive bowel gas pattern with some scattered air-fluid levels and a small stool burden. Dictated by Mary Kaur MD @ 05/18/2025 9:55:51 AM (Electronically Signed)
[2025-05-18] MEDS: SENNOSIDES/DOCUSATE TABLET 2 TAB PO (09:23)
[2025-05-18] MEDS: MULTIVITAMIN/MINERALS 1 TABLET 1 TAB PO (09:23)
[2025-05-18] MEDS: AZITHROMYCIN 250 MG TABLET PO (09:23)
[2025-05-18] MEDS: FOLIC ACID 1 MG TABLET PO (09:23)
[2025-05-18] MEDS: SODIUM CHLORIDE 0.9 % (FLUSH) 10 ML SYRINGE 5 ML IVF (09:24)
[2025-05-18] MEDS: METOCLOPRAMIDE HCL 5 MG/ML INJ 10 MG IVP (11:58)
--- NOTE | 2025-05-18 14:46 | P.DS_ITS ---
DS: Providers Provider Time Seen by Provider: 08:17 Date Seen: 05/18/25 Date of admission: 05/16/25 13:10 Primary care physician: Not a Local Provider Admitting Clinician: Jovita Brown MD Consults: 05/17/25 09:49 Consult to Occupational Therapy [CONS] Routine Comment: Reason(s) for OT Consult:: Evaluate and Treat Any Restrictions?:: No Restrictions Consult to Physical Therapy [CONS] Routine Comment: Reason(s) for PT Consult:: Evaluate and Treat Any Restrictions?:: No Restrictions Attending Physician on discharge: Angely Devlin MD Date of Discharge: 05/18/25 DS: Diagnosis Discharge Diagnosis (1) DOMINIK (acute kidney injury): Status: Acute Problem details: Unknown baseline On admission; creatinine elevated at 2.2 with GFR of 31 Creatinine kinase was within normal after the fall Likely secondary to dehydration as patient has decreased appetite and is not drinking well or it could be related to infection. Will give him IV fluids and monitor creatinine/ GFR. If no improvement with IV fluids, patient might need further investigation like renal ultrasound and follow up with his PCP/consumer analyst for further workup. - 05/17 DOMINIK improving with IVF. Saline lock and monitor. -05/18 RESOLVED. Cr 0.9 today. (2) Aspiration pneumonia: Status: Acute Problem details: -CT scan of the chest showed Moderate bronchial wall thickening may represent airways infection or inflammation. Moderate scattered centrilobular nodularity and ground-glass in the left lower lobes compatible with aspiration or atypical infection or inflammation. -He is an everyday smoker and he states that he has chronic smoker cough and chronic greenish phlegm that did not worsen recently, he said that this is his usual baseline ( which could be undiagnosed COPD). -patient may have had an incident of aspiration pneumonia on the day of that fall or it could be aspiration pneumonitis. -will start him on Unasyn, we will monitor overnight, will deescalate if patient does not have any fevers, worsening cough or phlegm. - 05/17 No hypoxia. Continue ceftriaxone and azithromycin. - 05/18 no hypoxia, improved pain with abdominal binder, lidocaine patch, oxycodone. Continue these and transition to oral antibiotics for discharge home today. I recommended complete abstinence from alcohol. (3) Multiple rib fractures: Status: Acute Problem details: -His chest CT showed mildly displaced segmental right posterior 7th and 8th rib fractures. Minimally angulated right posteromedial 9th rib fracture. Mildly displaced segmental right posterior 10th and 11th rib fractures. -ED provider contacted general surgeon Dr. Trotter him who stated that patient can be admitted for observation and nothing to be done for these fractures. -pain management. (4) Alcohol use disorder: Status: Acute Problem details: Ordered CIWA protocol Ordered thiamine, folate and multivitamin. - 05/18 CIWAs low, no evidence of withdrawal today. Recommended complete abstinence from alcohol. (5) Tobacco use disorder: Status: Acute Problem details: Offered a nicotine patch (6) Suspected chronic obstructive pulmonary disease based on initial evaluation: Status: Acute Problem details: He is an everyday smoker and he states that he has chronic smoker cough and chronic greenish phlegm that did not worsen recently, he said that this is his usual baseline ( which could be undiagnosed COPD). Patient needs to follow up with his primary care physician for more workup and evaluation. (7) Genitourinary trauma: Status: Ruled-out Problem details: Patient may have injured his testicles during dragging himself on the floor for long distance Benign examination, nontender to palpation not swollen or red Urinalysis unremarkable (8) Unsteady gait: Status: Acute Problem details: - Noted by nursing staff. PT and OT have evaluated. Use walker. Ordered outpatient PT. (9) Left leg pain: Status: Acute Problem details: - recent fall, now with left lower extremity pain and swelling - lower extremity ultrasound and x-rays; results, above, are negative DS: Summary Hospital Course Hospital Course: Per H&P: Andrew Farias is a 75 year old male without a significant past medical history per the patient as he did not see physician for long time. Patient is an everyday smoker, with alcohol use disorder, mainly beer who presents after fall that happened 7 days ago, complaining of right flank/mid axillary pain and bruising that started after that fall. Pt states that he came home from the bar week ago presumably intoxicated and fell getting out of the car. Patient got up in promptly fell again on a piece of wood. Patient states he has most of his pain in anterior and lateral right side of his chest. Patient was unable to get up and actually drag himself [place] into the house. In addition, patient noticed that he has been having stained underwear (color of beet juice) since that fall. patient denies fevers, shortness of breath, chest pain or discomfort on exertion ( he just has that pain related to taking a deep breath or coughing at the site of chest bruising). he is urinating well and he stated that he does not have pain in his testicles or penis right now. Patient denies history of heart, lung, kidney or liver disease. He is an everyday smoker and he states that he has chronic smoker cough and chronic greenish phlegm that did not worsen recently, he said that this is his usual baseline ( which could be undiagnosed COPD). at the ED, patient was hemodynamically stable, afebrile. WBCs borderline elevated at 10.85. creatinine elevated at 2.2 with GFR of 31, unknown baseline. He got CT head and CT cervical spine that were unremarkable. His chest CT showed mildly displaced segmental right posterior 7th and 8th rib fractures. Minimally angulated right posteromedial 9th rib fracture. Mildly displaced s egmental right posterior 10th and 11th rib fractures. Moderate bronchial wall thickening may represent airways infection or inflammation. Moderate scattered centrilobular nodularity and ground-glass in the left lower lobes compatible with aspiration or atypical infection or inflammation. Renal function improved and DOMINIK resolved. Patient's pain from rib fractures improved with oxycodone, lidocaine patch, and abdominal binder. He was evaluated by PT and OT, and did well walking in the halls several times with a walker. He has had low appetite and had hiccups today. He was constipated; there was no evidence of bowel obstruction. Hiccups improved with metoclopramide. Discussion with his , he has chronic issues with low appetite and poor oral intake. She also has had some long-term concerns about his memory. He is discharged today in improved condition and will establish this week with a PCP and outpatient PT. I offered to set up home health PT, but he and his declined. NOTE TO PCP: Consider outpatient PFTs and cognitive testing and possibly further workup poor appetite, if that persists. Time Spent with Patient Time attestation: Total time spent providing and/or coordinating discharge services: Today I spent 50 minutes seeing the patient, discussing with the patient's over the phone, discussing with the patient, his brother, and the patient's , reviewing [facility] and [facility] notes/diagnostics/labs, discussing the care plan with our care team that includes social work, PT/OT, pharmacy, RT, retirement and documenting my impressions and plan in the medical record. Exam Narrative: Exam Narrative: General: No acute distress. Awake, alert, oriented. No pallor. No jaundice. Oropharynx: Clear. Mucous membranes moist. Cardiovascular: Regular rate and rhythm. No murmurs, gallops, or rubs. Respiratory: Clear to auscultation bilaterally. No wheezes or crackles. Bruising improving. Abdomen: Bowel sounds present. Soft, nondistended, nontender. Extremities: Bruising on upper thighs improving. 1+ pitting edema bilaterally, left slightly more than right. Const: Vital Signs, click to edit/add: Vital Signs - 24 hr 05/17/25 15:00 05/17/25 16:05 05/17/25 16:05 Temperature 97.7 F 97.7 F Pulse Rate [Pulse Oximeter] 79 79 79 Pulse Rate [orthos tatic lying] Pulse Rate [orthos tatic sitting] Pulse Rate [orthos tatic standing Rig ht] Respiratory Rate 16 16 16 Blood Pressure [Le ft Arm] 160/85 H 160/85 H Blood Pressure [Ri ght Arm] Blood Pressure [or thostatic lying] Blood Pressure [or thostatic sitting] Blood Pressure [or thostatic standing Right Arm] Pulse Oximetry 98 98 Oxygen Delivery Me thod Room Air Room Air 05/17/25 19:00 05/17/25 23:00 05/17/25 23:00 Temperature 97.6 F 97.9 F Pulse Rate [Pulse Oximeter] 813 H 89 89 Pulse Rate [orthos tatic lying] Pulse Rate [orthos tatic sitting] Pulse Rate [orthos tatic standing Rig ht] Respiratory Rate 20 20 20 Blood Pressure [Le ft Arm] Blood Pressure [Ri ght Arm] 131/79 136/78 Blood Pressure [or thostatic lying] Blood Pressure [or thostatic sitting] Blood Pressure [or thostatic standing Right Arm] Pulse Oximetry 95 96 Oxygen Delivery Me thod Room Air Room Air 05/17/25 23:16 05/18/25 03:44 05/18/25 03:47 Temperature 97.9 F 97.8 F 97.8 F Pulse Rate [Pulse Oximeter] 89 77 77 Pulse Rate [orthos tatic lying] Pulse Rate [orthos tatic sitting] Pulse Rate [orthos tatic standing Rig ht] Respiratory Rate 20 16 16 Blood Pressure [Le ft Arm] Blood Pressure [Ri ght Arm] 136/78 151/74 H 151/74 H Blood Pressure [or thostatic lying] Blood Pressure [or thostatic sitting] Blood Pressure [or thostatic standing Right Arm] Pulse Oximetry 96 94 94 Oxygen Delivery [place] [facility] Room Air Room Air Room Air 05/18/25 07:34 05/18/25 07:34 05/18/25 07:34 Temperature 97.8 F 97.8 F Pulse Rate [Pulse Oximeter] 74 74 74 Pulse Rate [orthos tatic lying] Pulse Rate [orthos tatic sitting] Pulse Rate [orthos tatic standing Rig ht] Respiratory Rate 14 14 14 Blood Pressure [Le ft Arm] Blood Pressure [Ri ght Arm] 136/91 H 136/91 H Blood Pressure [or thostatic lying] Blood Pressure [or thostatic sitting] Blood Pressure [or thostatic standing Right Arm] Pulse Oximetry 96 96 [facility] 05/18/25 10:40 05/18/25 11:18 05/18/25 11:25 Temperature 97.4 F L Pulse Rate [Pulse Oximeter] 100 Pulse Rate [orthos tatic lying] 90 Pulse Rate [orthos tatic sitting] 98 Pulse Rate [orthos tatic standing Rig ht] 100 Respiratory Rate 14 Blood Pressure [Le ft Arm] 130/75 Blood Pressure [Ri ght Arm] 112/73 Blood Pressure [or thostatic lying] 158/100 H Blood Pressure [or thostatic sitting] 151/108 H Blood Pressure [or thostatic standing Right Arm] 112/73 Pulse Oximetry 96 [facility] 05/18/25 11:30 Temperature 97.4 F L Pulse Rate [Pulse Oximeter] 100 Pulse Rate [orthos tatic lying] Pulse Rate [orthos tatic sitting] Pulse Rate [orthos tatic standing Rig ht] Respiratory Rate 14 Blood Pressure [Le ft Arm] Blood Pressure [Ri ght Arm] 112/73 Blood Pressure [or thostatic lying] Blood Pressure [or thostatic sitting] Blood Pressure [or thostatic standing Right Arm] Pulse Oximetry 96 [facility] DS: Data Data Completed and Pending Labs on day of discharge: Labs from last 24 hours 05/18/25 05:28 WBC 5.48 RBC 4.16 L Hgb 12.7 L Hct 39.0 MCV 94 MCH 31 MCHC 33 RDW Coeff of Estefanía 14.5 Plt Count 190 Neut % (Auto) 64.4 Lymph % (Auto) 25.0 [place] % (Auto) 9.1 Eos % (Auto) 1.1 Baso % (Auto) 0.4 Neut # (Auto) 3.53 Lymph # (Auto) 1.37 [place] # (Auto) 0.50 Eos # (Auto) 0.06 Baso # (Auto) 0.02 Abs Immat Gran (auto) 0.00 Imm/Tot Granulo (auto) 0.0 Sodium 140 Potassium 4.1 Chloride 110 Carbon Dioxide 16 L Anion Gap 14 BUN 22 Creatinine 0.9 Estimated Creat Clear 58.48 Estimated GFR 90 Glucose 124 H Calcium 9.4 Ordering Physician: Antonio Mclean M.D. Date of Service: 05/16/25 Procedure(s): CT cervical spine wo con Accession Number(s): [id number] cc: Provider,Not a Local; Antonio Mclean M.D.~ For Patients: As a result of the Cures Act, medical imaging exams and procedure reports are released immediately into your electronic medical record. You may view this report before your referring provider. If you have questions, please contact your health care provider. INDICATION: Fall. COMPARISON: Same-day head CT TECHNIQUE: CT of the cervical spine without contrast. Multiplanar axial, coronal, and sagittal reformats were reconstructed. FINDINGS: No fracture. There is 2 millimeters retrolisthesis of C3 on C4. There is 2 millimeters anterolisthesis of C4 on C5. Severe C3-4 and C6-7 disc degenerative change. Moderate changes at other levels. Multilevel disc bulge and endplate osteophytes. Moderate multilevel facet arthritis. Multilevel bilateral neural foraminal narrowing. There is some central canal narrowing at C3-4 due to disc bulge, osteophytes, and thickening of the ligamentum flavum. No destructive bony lesions. No cervical prevertebral soft tissue swelling. Heavy atherosclerosis. Right apical worsened left apical centrilobular emphysema. There is a 4 millimeter nodule in the right lung apex. Consider follow-up chest CT in 1 year. IMPRESSION: No acute or traumatic findings on cervical spine CT. Please note that all CT scans at this facility use dose modulation, iterative reconstruction, and/or weight-based dosing when appropriate to reduce radiation dose to as low as reasonably achievable. Dictated by Mary Kaur MD @ 05/16/2025 11:58:53 AM (Electronically Signed) Ordering Physician: Antonio Mclean M.D. Date of Service: 05/16/25 Procedure(s): CT chest abdomen pelv wo con Accession Number(s): [id number] cc: Provider,Not a Local; Antonio Mclean M.D.~ For Patients: As a result of the Cures Act, medical imaging exams and procedure reports are released immediately into your electronic medical record. You may view this report before your referring provider. If you have questions, please contact your health care provider. Indication: fall Technique: CT of the chest, abdomen, and pelvis was obtained without intravenous contrast. Please note that all CT scans at this facility use dose modulation, iterative reconstruction, and/or weight-based dosing when appropriate to reduce radiation dose to as low as reasonably achievable. Comparison: None. Findings: CHEST: Medical devices: None. Thyroid: Normal. Lymph nodes: Limited evaluation without IV contrast. No supraclavicular, axillary, mediastinal, or hilar lymphadenopathy. Vasculature: Limited evaluation without IV contrast. Aorta and main pulmonary artery diameters are within normal range. Mild aortic calcification. Heart: Moderate coronary artery calcification. No pericardial effusion. Other mediastinal structures: Normal noncontrast appearance. Lung parenchyma and pleura: Moderate scattered centrilobular nodularity and ground-glass in the left lower lobe. Mild paraseptal emphysema. Scattered calcified granulomata. Airways: Moderate bronchial wall thickening. Chest wall: Mildly displaced segmental right posterior 7th and 8th rib fractures. Minimally angulated right posteromedial 9th rib fracture. Mildly displaced segmental right posterior 10th and 11th rib fractures. Mild chronic healed left-sided rib fractures. ABDOMEN/PELVIS: Liver and biliary tree: Normal noncontrast appearance. Gallbladder: Cholelithiasis. Spleen: Normal noncontrast appearance. Pancreas: Mild to moderate fatty atrophy. Adrenal glands: Normal noncontrast appearance. Kidneys and ureters: No hydronephrosis or obstructing renal calculi. Gastrointestinal tract: Small to moderate stool burden. No evidence of acute appendicitis. No evidence of bowel obstruction. Peritoneal cavity: Normal Bladder: Normal Pelvic organs: Moderately enlarged prostate. Vasculature: Moderate calcification. Lymph nodes: Normal Abdominal wall: Trace fat containing periumbilical hernia. Musculoskeletal: Moderate degenerative changes of the visualized spine and bilateral hips. Mirt-up-qjqtzror leftward curvature of the lumbar spine. Subcentimeter sclerotic lesion in the right iliac bone may represent a bone island in the absence of known malignancy. Impression: 1. Mildly displaced segmental right posterior 7th and 8th rib fractures. Minimally angulated right posteromedial 9th rib fracture. Mildly displaced segmental right posterior 10th and 11th rib fractures. While this may increase the risk of flail chest, this is felt to be less likely given the mildly displaced nature of several of these fractures. Consider correlation with respiratory status. 2. Moderate bronchial wall thickening may represent airways infection or inflammation. Moderate scattered centrilobular nodularity and ground-glass in the left lower lobes compatible with aspiration or atypical infection or inflammation. 3. No acute intra abdominal injury is seen. Please note that all CT scans at this facility use dose modulation, iterative reconstruction, and/or weight-based dosing when appropriate to reduce radiation dose to as low as reasonably achievable. Dictated by Gal Mclaughlin MD @ 05/16/2025 12:18:53 PM (Electronically Signed) Ordering Physician: Antonio Mclean M.D. Date of Service: 05/16/25 Procedure(s): CT head/brain wo con Accession Number(s): [id number] cc: Provider,Not a Local; Antonio Mclean M.D.~ For Patients: As a result of the Century Cures Act, medical imaging exams and procedure reports are released immediately into your electronic medical record. You may view this report before your referring provider. If you have questions, please contact your health care provider. INDICATION: Fall. COMPARISON: None. TECHNIQUE: CT of the brain / head without intravenous contrast. Multiplanar axial, coronal, and sagittal reformats were reconstructed. FINDINGS: No intracranial hemorrhage. Moderate size area of underdevelopment or encephalomalacia in the left parietal lobe. Mild age-related atrophy as well. Scattered white matter hypodensities may be related to chronic microvascular ischemia. No mass or mass effect. Normal ventricles. No skull fractures. No worrisome focal bone lesion. IMPRESSION: No acute appearing findings or intracranial hemorrhage. Please note that all CT scans at this facility use dose modulation, iterative reconstruction, and/or weight-based dosing when appropriate to reduce radiation dose to as low as reasonably achievable. Dictated by Mary Kaur MD @ 05/16/2025 11:54:12 AM (Electronically Signed) Ordering Physician: Angely Devlin M.D. Date of Service: 05/17/25 Procedure(s): XR ankle LT min 3V Accession Number(s): [id number] cc: Angely Devlin M.D.; Provider,Not a Local~ For Patients: As a result of the Cures Act, medical imaging exams and procedure reports are released immediately into your electronic medical record. You may view this report before your referring provider. If you have questions, please contact your health care provider. INDICATION: Fall. Swelling and pain. Technique : Left ankle three views FINDINGS: There is soft tissue swelling overlying the ankle especially on the lateral side. No fracture or dislocation is identified. The ankle mortise is symmetric there is a small plantar calcaneal spur. There is atherosclerosis calcification within the lower extremity. IMPRESSION: Negative for fracture or dislocation. Dictated by Mason Christine MD @ 05/17/2025 10:45:31 AM (Electronically Signed) Ordering Physician: Angely Devlin M.D. Date of Service: 05/17/25 Procedure(s): XR foot LT 2V Accession Number(s): [id number] cc: Angely Devlin M.D.; Provider,Not a Local~ For Patients: As a result of the Cures Act, medical imaging exams and procedure reports are released immediately into your electronic medical record. You may view this report before your referring provider. If you have questions, please contact your health care provider. INDICATION: Fall, injury, pain COMPARISON: None. TECHNIQUE: Two views left foot, nonweightbearing. FINDINGS: No acute or healing fracture. No dislocation. 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 No focal bone lesions. Calcaneal enthesophytes. Soft tissue swelling/fullness. Atherosclerosis. No foreign body. IMPRESSION: No acute appearing findings in the left foot. Dictated by Mary Kaur MD @ 05/17/2025 10:45:20 AM (Electronically Signed) Ordering Physician: Angely Devlin M.D. Date of Service: 05/17/25 Procedure(s): US venous LE LT Accession Number(s): [id number] cc: Angely Devlin M.D.; Provider,Not a Local~ For Patients: As a result of the Cures Act, medical imaging exams and procedure reports are released immediately into your electronic medical record. You may view this report before your referring provider. If you have questions, please contact your health care provider. INDICATION: Leg pain and swelling. TECHNIQUE: Ultrasound venous duplex lower left extremity. Compression venous exam was performed using palacio-scale, color Doppler, and spectral Doppler analysis. COMPARISON: None. FINDINGS: Deep veins: Sonographic imaging demonstrates the left common femoral, deep femoral, superficial femoral, popliteal, posterior tibial and the contralateral right common femoral veins to be fully compressible with normal color Doppler blood flow. Superficial veins: Greater saphenous vein is fully compressible. No popliteal cyst. IMPRESSION: No scintigraphic evidence of left lower extremity DVT. Dictated by Roscoe Velasquez MD @ 05/17/2025 11:46:44 AM (Electronically Signed) Ordering Physician: Angely Devlin M.D. Date of Service: 05/18/25 Procedure(s): XR abdomen min 2V Accession Number(s): [id number] cc: Angely Devlin M.D.; Provider,Not a Local~ For Patients: As a result of the Cures Act, medical imaging exams and procedure reports are released immediately into your electronic medical record. You may view this report before your referring provider. If you have questions, please contact your health care provider. INDICATION: Vomiting, hiccups, no flatus. COMPARISON: CT 05/16/2025 TECHNIQUE: 2 view abdominal radiograph, supine and upright. FINDINGS: Small stool burden. No dilated bowel loops. Few scattered air-fluid levels. No free air. No organomegaly or mass effect. Atherosclerosis. Lung bases: Clear. Osseous structures: Lumbar spinal curvature with disc and facet degeneration. No acute appearing bone findings. IMPRESSION: Nonobstructive bowel gas pattern with some scattered air-fluid levels and a small stool burden. Dictated by Mary Kaur MD @ 05/18/2025 9:55:51 AM (Electronically Signed) Discharge Plan Discharge Disposition: Home, Self-Care Date of Admission: 05/16/25 13:10 Attending Provider on Discharge: Angely Devlin Primary Care Provider: Provider,Not a Local Condition: Stable Anticipated Discharge Date/Time: 05/18/25 14:46 Discharge Medications: New azithromycin 250 mg Tablet 250 mg PO Q24H 3 Days Qty: 3 0RF Taper: Z-JOSH 500 mg Q24H for 1 Day and 0 Hour 250 mg Q24H for 4 Days and 0 Hour cefdinir 300 mg capsule 300 mg PO BID 5 Days Qty: 10 0RF sennosides-docusate sodium [Stool Softener-Laxative] 8.6-50 mg Tablet 2 tab PO BID Qty: 60 0RF lidocaine 5 % Adhesive Patch,Medicated 1 patch transdermal Q24H Qty: 30 0RF folic acid 1 mg Tablet 1 mg PO DAILY Qty: 30 0RF oxycodone 5 mg Tablet 5 mg PO Q6H MDD 20 mg PRNQty: 20 0RF multivitamin with folic acid [Thera] 400 mcg Tablet 1 tab PO DAILY Qty: 30 0RF thiamine mononitrate (vit B1) [Vitamin B-1 (mononitrate)] 100 mg Tablet 100 mg PO Q24H Qty: 30 0RF omeprazole 20 mg tablet,delayed release (DR/EC) 20 mg PO DAILY Qty: 14 0RF metoclopramide HCl 10 mg tablet 10 mg PO Q6H PRN (Reason: nausea and vomiting or hiccups) Qty: 10 0RF Discharge Orders: Discharge Order (Routine); Ordered 05/18/25 Ordered By: Angely Devlin Patient Education: Metoclopramide (By mouth), Omeprazole (By mouth), Thiamine (By mouth), Azithromycin (By mouth), Folic Acid (By mouth), Multivitamins, Adult Formula (By mouth), Oxycodone, Rapid Release (By mouth), Cefdinir (By mouth), Lidocaine (Into the skin), Senna (By mouth), Rib Fracture (DC), Fall Prevention (DC) Additional Instructions: Establish with PCP ( requests Rodolfo) 3-5 days. Outpatient PT eval and treat. Use the chest binder, which will help with pain. Avoid alcohol. Don't drive while taking narcotics. Stay hydrated. Activity Level: Use Walker Discharge Diet: 2 gm Sodium Follow Up Appointments: Vin Reynolds MD [Staff Physician, Family Practice] - 05/27/25 3:00 pm Referral Note: [facility] for follow up Provider,Not a Local [Primary Care Provider, Family Practice] Forms: [employer] Info Instructions
[2025-05-18] MEDS: THIAMINE 100 MG TABLET PO (15:26)
[2025-05-18] MEDS: LIDOCAINE 5% PATCH 1 PATCH TRANSDERMA (15:26)
--- NOTE | 2025-05-18 16:48 | PC.NURSE ---
Discharge: Patient pleasant and cooperative. Patient vitally stable, lungs clear, BS WNL, IV removed, catheter intact. Patient rates pain either 8/10 or none. Tylenol given twice and 5mg of oxy given once. Lidocaine patch applied to right side of back, is aware to remove in the morning. Patient has an abdominal binder applied and patient found it comfortable. Patient given fleet enema, which resulted in a small pebble like stool. Patient had an ice cream and popsicle today, but drinking fluids. Patient is SBA/walker. Patient walked the halls today. Discharge paperwork reviewed with and patient. Patient signed belongings sheet and discharge form. nor patient had further questions regarding discharge info. Patient left the floor by wheelchair to home with at 1626.
== END 2025-05-18 16:26 | disposition home or self-care (01) | DRG 682 ==
LOC: ED 12:43 → MEDSURG 13:08
PROVIDERS: Family Medicine; Student in an Organized Health Care Education/Training Program; Admitting Provider Family Medicine; Emergency Provider Internal Medicine; Visit Provider Family Medicine
DX: N17.9 Acute kidney failure, unspecified (principal); J69.0 Pneumonitis due to inhalation of food and vomit; S22.41XA Multiple fractures of ribs, right side, initial encounter for closed fracture; S39.94XA Unspecified injury of external genitals, initial encounter; V48.4XXA Person boarding or alighting a car injured in noncollision transport accident, initial encounter; Y92.014 Private driveway to single-family (private) house as the place of occurrence of the external cause; Z91.81 History of falling; M79.605 Pain in left leg; F10.90 Alcohol use, unspecified, uncomplicated; F12.90 Cannabis use, unspecified, uncomplicated; F17.210 Nicotine dependence, cigarettes, uncomplicated; F17.290 Nicotine dependence, other tobacco product, uncomplicated; R26.81 Unsteadiness on feet; R05.3 Chronic cough; Z88.0 Allergy status to penicillin; Z23 Encounter for immunization
CPT/HCPCS: 36415; 70450; 71250; 72125; 73610; 73620; 74019; 74176; 80048; 80053; 81001; 81003; 82550; 83690; 83735; 85025; 85027; 85610; 87086; 90715; 93971; 97112; 97116; 97161; 97165; 97530; 99284; 99285; A9153; A9270; J0696; J1650; J2543; J2765; J7030; J7050